=== PATIENT | male | born 1980 | race Caucasian/White ===

== ENCOUNTER 2017-04-16 07:44 | Inpatient (IN) | payer SELFPAY ==
[~2017-04-16] VITALS: Ht 182.9 cm; Wt 106.6 kg
[2017-04-16 07:52] VITALS: BP 122/76
--- NOTE | 2017-04-16 07:57 | NUR ---
Patient ambulated to bed 4. RN evaluating patient at bedside.
--- NOTE | 2017-04-16 08:00 | NUR ---
37M BIB GIRLFRIEND C/O 03/22 "PRESSURE" NON RADIATING CONSTANT RT SIDED HEADACHE X 3 DAYS; PT STATES NO TRAUMA OR INJURY TO SITE AT THIS TIME; PT STATES HE USED METH 4 DAYS AGO; PT ALSO REPORTS OF NAUSEA AND BLURRY VISION; SKIN IS PINK/WARM/DRY; AAOX4 WITH EVEN AND STEADY GAIT; RR ARE EVEN AND UNLABORED; PATIENT POSITIONED FOR COMFORT; HOB ELEVATED; NAD; ER MD MADE AWARE OF PT STATUS.
--- NOTE | 2017-04-16 08:10 | NUR ---
Dr. Dobbs evaluating patient at bedside.
[2017-04-16] MEDS ORDERED: NACL 0.9% 1,000 ML IV ONE ×2 (08:15→10:20)
[2017-04-16] MEDS ORDERED: ONDANSETRON 4 MG/2 ML VIAL IVP ONE (08:15)
[2017-04-16] MEDS ORDERED: MORPHINE SULFATE 2 MG/ML SYR IM ONE (08:15)
[2017-04-16] MEDS ORDERED: PROCHLORPERAZINE 10 MG/2 ML VIAL IVP ONE (08:15)
[2017-04-16] MEDS ORDERED: diphenhydrAMINE 50 MG/ML VIAL IVP ONE (08:15)
[2017-04-16] MEDS ORDERED: KETOROLAC 30 MG/ML VIAL IVP ONE (08:15)
[2017-04-16 09:01] LABS: HEMATOCRIT 49.3 % (36-52); MEAN CORPUSCULAR HEMOGLOBIN 29 pg (27-31); MEAN CORPUSCULAR HGB CONC 33 g/dL (33-37); MEAN CORPUSCULAR VOLUME 89 fL (80-94); PLATELET COUNT (AUTO) 171 K/uL (140-450); RED BLOOD CELL COUNT(AUTO) 5.54 MIL/uL (4.20-6.10); RED CELL DISTRIBUTION WIDTH 12.9 % (11.6-13.7); WHITE BLOOD COUNT (AUTO) 10.2 K/uL (4.8-10.8)
--- NOTE | 2017-04-16 09:05 | NUR ---
PT TO CT VIA MICKIE ACCOMPANIED BY WHOLESALE DIAMOND BROKER
[2017-04-16 09:17] LABS: BARBITURATE, URINE NEG. ng/ml (NEG <=200); BENZODIAZEPINE, URINE NEG. ng/mL (NEG <=200); CANNABINOID, URINE NEG. ng/mL (NEG <=50); COCAINE, URINE NEG. ng/mL (NEG <=300); OPIATE, URINE NEG. ng/mL (NEG <=2000); PHENCYCLIDINE SCREEN,URINE NEG. ng/mL (NEG <=25)
[2017-04-16 09:19] LABS: ANION GAP 14.9 (8-16); CARBON DIOXIDE 27.8 mmol/L (21-32); CREATININE 1.3 mg/dL (0.7-1.3); POTASSIUM 3.7 mmol/L (3.5-5.1)
--- NOTE | 2017-04-16 09:20 | NUR ---
PT STATES CONNOR PAIN DECREASED TO 8/10; ER MD OCAMPO NOTIFIED AND AWARE
--- NOTE | 2017-04-16 09:20 | NUR ---
PT RETURNED FROM CT VIA GURNEY ACCOMPANIED BY HUMAN RESOURCES OFFICE ASSISTANT
[2017-04-16 09:24] LABS: LYMPHOCYTES % (MANUAL) 12 % (20-46); MONOCYTES % (MANUAL) 10 % (5-12)
[2017-04-16] MEDS ORDERED: DEXAMETHASONE 10 MG/ML VIAL IVP ONE (11:10)
[2017-04-16] MEDS ORDERED: cefTRIAXone 2,000 MG in DEXTROSE 5% 100 ML IV ONE (11:10)
[2017-04-16] MEDS ORDERED: VANCOMYCIN 1,000 MG in DEXTROSE 5% 250 ML IV ONE (11:10)
[2017-04-16] MEDS ORDERED: FAMOTIDINE 20 MG/2 ML VIAL IVP ONE (11:10)
--- NOTE | 2017-04-16 11:11 | NUR ---
Dr. Dobbs re-evaluating patient at bedside.
[2017-04-16] MEDS ORDERED: VANCOMYCIN 1,000 MG VIAL ONE ×2 (11:27→20:41)
[2017-04-16] MEDS ORDERED: cefTRIAXone 2,000 MG VIAL ONE (11:34)
--- NOTE | 2017-04-16 11:53 | NUR ---
Patient will be admitted to care of [facility]. Admited [place]. Will go to room 120B. Belongings list completed. Report to Lucrecia.
--- NOTE | 2017-04-16 11:53 | NUR ---
RECEIVED REPORT FROM THE ER NURSE. WILL GET ROOM READY AND AWAIT FOR PT'S ARRIVAL.
[2017-04-16] MEDS ORDERED: HYDROcodone/APAP 7.5/325 MG 1 TAB PO PRN (12:00)
[2017-04-16] MEDS ORDERED: ONDANSETRON 4 MG/2 ML VIAL IVP PRN (12:00)
--- NOTE | 2017-04-16 12:25 | NUR ---
PT ARRIVED ON THE UNIT WITH 2 ER NURSES ON A [place]. PT AMBULATING FROM RNEY IN THE HALLWAY TO THE BED. PT'S GAIT IS STEADY. SKIN IS INTACT. IV ON R HAND 22G SL. VANCO WITH PT. WILL ADMINISTER. PT IS ALERT AND ORIENTED. INTRODUCED MYSELF AND UPDATED THE BOARD. ADMINISTERED IVF, NS AT 50ML/HR ORDERED. ADMINISTERED VANCO. ADMINISTERED BROWN SOCKS. ADMINISTERED TELE MONITOR. MRSA SCREENING DONE. V/S WITHIN NORMAL LIMITS. PLACE ALL PERSONAL BELONGINGS IN BAGS AND IN DRAWER. DR FRAUSTO WITH PT NOW, DOING ASSESSMENT. WILL CONTINUE TO MONITOR PT.
[2017-04-16 12:28] LABS: APPEARANCE,URINE CLEAR (CLEAR); BILIRUBIN,URINE 1+ (NEGATIVE); BLOOD, URINE NEGATIVE (NEGATIVE); COLOR,URINE YELLOW (YELLOW); LEUKOCYTE ESTERASE ,URINE NEGATIVE (NEGATIVE); NITRITE, URINE NEGATIVE (NEGATIVE); UGLUCOSE NEGATIVE (NEGATIVE)
[2017-04-16] MEDS: NACL 0.9% 1,000 ML IV SCH (12:30)
[2017-04-16 12:50] LABS: PROTHROMBIN TIME 11.3 secs (10.8-13.4)
[2017-04-16 13:00] VITALS: BP 130/63
[2017-04-16 13:06] LABS: CHOL/HDL RATIO 3.2 (1-4.5); FREE T4 (FREE THYROXINE) 0.87 ng/dL (0.76-1.46); MAGNESIUM 1.6 mg/dL (1.8-2.4); PHOSPHORUS 2.9 mg/dL (2.5-4.9); THYROID STIMULATING HORMONE 0.94 uIU/mL (0.34-3.74)
[2017-04-16 13:24] LABS: RBC,URINE NONE SEEN /HPF (0-5); WBC,URINE 0-5 (RARE) /HPF (0-5)
--- NOTE | 2017-04-16 14:00 | NUR ---
PT RESTING COMFORTABLY WITH GIRLFRIEND AT HIS SIDE. NO SIGNS OF DISTRESS. WILL CONTINUE TO MONITOR PT.
[2017-04-16] MEDS ORDERED: LORazepam 2 MG/ML VIAL IVP PRN (14:35)
[2017-04-16] MEDS ORDERED: NITROGLYCERIN 0.4 MG TAB SL PRN (14:35)
[2017-04-16] MEDS ORDERED: CALCIUM CARB/VIT-D 500 MG/200 IU 1 TAB PO SCH (14:58)
[2017-04-16] MEDS ORDERED: MAG SULF 2000 MG/WATER PREMIX 50 ML IV SCH (15:00)
[2017-04-16 16:00] VITALS: BP 119/64
--- NOTE | 2017-04-16 16:40 | NUR ---
ADMINISTERED AFTERNOON MEDS. MAG RIDER ADMINISTERED. EDUCATED PT ABOUT LOW MAGNESIUM. PT VERBALIZED UNDERSTANDING. PT IS TOLERATING WELL. RESTING COMFORTABLY. NO SIGNS OF DISTRESS.
--- NOTE | 2017-04-16 19:10 | NUR ---
ENDORSED PT TO THE HAND STAPLER NURSE AT BEDSIDE FOR CONTINUITY OF CARE. PT IS IN STABLE CONDITION. GIRLFRIEND AT BEDSIDE. PT IS RESTING COMFORTABLY. PT IN STABLE CONDITION.
--- NOTE | 2017-04-16 19:11 | NUR ---
RECEIVED REPORT FROM DAY SHIFT RN, PT IS A/FENG4, ON ROOM AIR. INTACT SKIN. RIGHT HAND IV 20G INFUSING NS@50ML/HR. PT IS AMBULATORY WITH STEADY GAIT. SAFETY PRECAUTIONS IN PLACE. UPDATED BOARD. DISCUSSED PLAN OF CARE WITH PT, PT VERBALIZED UNDERSTANDING. VITAL SIGNS WITHIN NORMAL LIMITS. PT FAMILY AT BEDSIDE. PT IN STABLE CONDITION, NO SIGNS OF DISTRESS NOTED. BED IN LOW POSITION, CALL LIGHT WITHIN REACH. WILL CONTINUE TO MONITOR.
[2017-04-16 19:50] VITALS: BP 109/66
[2017-04-16] MEDS ORDERED: ACYCLOVIR 500 MG VIAL IV ONE (20:41)
[2017-04-16] MEDS: DOCUSATE SODIUM 100 MG GELCAP PO SCH (20:48)
[2017-04-16] MEDS: ATORVASTATIN 20 MG TAB PO SCH (20:51)
[2017-04-16] MEDS: METOPROLOL 25 MG TAB PO SCH (20:52)
[2017-04-16] MEDS: LORazepam 1 MG TAB PO SCH (20:52)
[2017-04-16] MEDS: ACETAMINOPHEN 325 MG TAB PO PRN (20:53)
[2017-04-16] MEDS: ACYCLOVIR 500 MG in NACL 0.9% 100 ML IV SCH (20:55)
[2017-04-16] MEDS: VANCOMYCIN 1,000 MG in DEXTROSE 5% 250 ML IV SCH (20:57)
[2017-04-16] MEDS ORDERED: cefTRIAXone 2,000 MG in DEXTROSE 5% 100 ML IV SCH (21:00)
--- NOTE | 2017-04-16 22:35 | NUR ---
PT CALLED SAYING IV WAS LEAKING. WALKED INTO ROOM AND THERE WAS A PUDDLE CLOSE TO IV PUMP ON THE FLOOR. CHECKED IV BAGS FOR LEAKS, DIDN'T FIND A LEAK, IV BAG WAS INFUSING WELL. CHECKED PT IV SITE, IV SITE CLEAN, DRY, INTACT. ASKED PT IF IT WAS POSSIBLE SOMETHING MIGHT HAVE SPILLED ON FLOOR, PT ANSWERED WITH "YES." DRIED PUDDLE AND CHECKED IV AGAIN, NO LEAKS NOTED. PT IN STABLE CONDITION, NO SIGNS OF DISTRESS NOTED. BED IN LOW POSITION, CALL LIGHT WITHIN REACH. WILL CONTINUE TO MONITOR.
[2017-04-17] VITALS: BP 106/65
[2017-04-17 04:00] VITALS: BP 129/73
--- NOTE | 2017-04-17 05:30 | NUR ---
ADMINISTERED SCHEDULED ANTIBIOTICS. PT TOLERATING WELL. PT IN STABLE CONDITION, NO SIGNS OF DISTRESS NOTED. BED IN LOW POSITION, CALL LIGHT WITHIN REACH. WILL CONTINUE TO MONITOR.
[2017-04-17] MEDS ORDERED: VANCOMYCIN 1,000 MG VIAL ONE (05:33)
[2017-04-17] MEDS ORDERED: ACYCLOVIR 500 MG VIAL IV ONE (05:34)
[2017-04-17] MEDS: ACYCLOVIR 500 MG in NACL 0.9% 100 ML IV SCH ×3 (05:37→20:52)
[2017-04-17] MEDS: LORazepam 1 MG TAB PO SCH ×3 (05:37→20:51)
[2017-04-17] MEDS: VANCOMYCIN 1,000 MG in DEXTROSE 5% 250 ML IV SCH (05:37)
--- NOTE | 2017-04-17 07:10 | NUR ---
ENDORSED PT TO DAY SHIFT RN FOR CONTINUITY OF CARE. PT IN STABLE CONDITION WITH NO SIGNS OF DISTRESS.
[2017-04-17] MEDS: NACL 0.9% 1,000 ML IV SCH (07:56)
[2017-04-17 08:00] VITALS: BP 132/79
[2017-04-17] MEDS ORDERED: PANTOPRAZOLE 40 MG INJ VIAL IVP SCH (09:00)
[2017-04-17] MEDS ORDERED: VANCOMYCIN 1,000 MG in DEXTROSE 5% 250 ML IV ONE (09:00)
[2017-04-17] MEDS: CALCIUM CARB/VIT-D 500 MG/200 IU 1 TAB PO SCH (09:04)
[2017-04-17] MEDS: LACTOBACILLUS RHAMNOSUS GG 1 EACH CAP PO SCH (09:05)
[2017-04-17] MEDS: DOCUSATE SODIUM 100 MG GELCAP PO SCH ×2 (09:06→20:52)
[2017-04-17] MEDS: LISINOPRIL 5 MG TAB PO SCH (09:06)
[2017-04-17] MEDS: ASPIRIN 81 MG TAB.CHEW PO SCH (09:07)
[2017-04-17] MEDS: METOPROLOL 25 MG TAB PO SCH ×2 (09:08→20:52)
[2017-04-17] MEDS: cefTRIAXone 2,000 MG in DEXTROSE 5% 100 ML IV SCH (09:08)
[2017-04-17] MEDS ORDERED: VANCOMYCIN PER PHARMACY MC PRN (09:25)
[2017-04-17 12:00] VITALS: BP 124/66
[2017-04-17] MEDS: VANCOMYCIN 1GM/DEXT 5% PREMIX 200 ML IV SCH ×2 (12:33→20:57)
[2017-04-17 13:15] LABS: HEMATOCRIT 42.4 % (36-52); HEMOGLOBIN 14.5 g/dL (12.0-18.0); MEAN CORPUSCULAR HEMOGLOBIN 29 pg (27-31); MEAN CORPUSCULAR HGB CONC 34 g/dL (33-37); MEAN CORPUSCULAR VOLUME 86 fL (80-94); PLATELET COUNT (AUTO) 158 K/uL (140-450); RED BLOOD CELL COUNT(AUTO) 4.94 MIL/uL (4.20-6.10); RED CELL DISTRIBUTION WIDTH 12.7 % (11.6-13.7); WHITE BLOOD COUNT (AUTO) 9.2 K/uL (4.8-10.8)
[2017-04-17 13:19] LABS: ANION GAP 12.2 (8-16); POTASSIUM 3.2 mmol/L (3.5-5.1)
[2017-04-17 13:23] LABS: MAGNESIUM 1.7 mg/dL (1.8-2.4)
[2017-04-17 13:52] LABS: LYMPHOCYTES % (MANUAL) 27 % (20-46); MONOCYTES % (MANUAL) 7 % (5-12)
[2017-04-17 16:00] VITALS: BP 114/48
[2017-04-17] MEDS: ACETAMINOPHEN 325 MG TAB PO PRN (17:04)
[2017-04-17] MEDS ORDERED: CALCIUM CARBONATE 500 MG TAB.CHEW PO SCH ×2 (17:45→21:00)
--- NOTE | 2017-04-17 18:00 | NUR ---
BEDSIDE LUMBAR PUNCTURE BEING DONE. PATIENT TOLERATING WELL.
[2017-04-17] MEDS ORDERED: HYDROmorphone 1 MG/ML AMP IVP SCH (18:40)
[2017-04-17] MEDS ORDERED: LORazepam 2 MG/ML VIAL IM/IVP SCH (18:40)
[2017-04-17] MEDS ORDERED: HYDROmorphone 1 MG/ML AMP ONE (18:48)
[2017-04-17] MEDS ORDERED: LORazepam 2 MG/ML VIAL ONE (18:49)
--- NOTE | 2017-04-17 19:21 | NUR ---
ENDORSED TO SERVICENOW ADMINISTRATOR RN FOR CONTINUITY OF CARE. PATIENT IN STABLE CONDITION.
[2017-04-17 19:32] LABS: CSF GLUCOSE 70 mg/dL (40-70)
[2017-04-17 19:33] LABS: CSF PROTEIN 29.4 mg/dL (15-45)
--- NOTE | 2017-04-17 19:43 | NUR ---
SPOKE WITH PREVIOUS NURSE ABOUT EMAR SHOWING SOME MEDICATIONS IN RED, SHE SAID THEY WERE MEDICATIONS GIVEN DURING PROCEDURE. DOCUMENTED MEDICATIONS "NON-ADMINISTERED GIVEN DURING PROCEDURE."
[2017-04-17 19:52] VITALS: BP 111/49
--- NOTE | 2017-04-17 20:00 | NUR ---
PT'S SIGNIFICANT OTHER WANTS TO STAY THE NIGHT, DR EVERETT MADE AWARE AND SHE SAID IT'S GERALD FOR HER TO STAY, EXPLAINED TO HER THE RISKS DUE TO PT'S CONDITION AND CONTACT PRECAUTION STATUS, PT IS GERALD WITH IT, INSTRUCTED TO WEAR MASK AND GLOVES WHILE INSIDE THE ROOM, VERBALIZED UNDERSTANDING.
[2017-04-17] MEDS: ATORVASTATIN 20 MG TAB PO SCH (20:52)
--- NOTE | 2017-04-17 23:14 | NUR ---
SPOKE TO DR EVERETT ABOUT PT POTASSIUM AND MAGNESIUM LEVELS BEING LOW. SAID SHE WOULD CHECK.
[2017-04-17] MEDS ORDERED: MAG SULF 2000 MG/WATER PREMIX 50 ML IV SCH (23:40)
[2017-04-18] VITALS: BP 104/53
[2017-04-18] MEDS ORDERED: MAGNESIUM OXIDE 400 MG TAB PO SCH (00:25)
[2017-04-18] MEDS ORDERED: KCL 20 MEQ/WATER INJ PREMIX 200 ML IV SCH (00:25)
--- NOTE | 2017-04-18 00:36 | NUR ---
ADMINISTERED ORDERED MEDICATIONS, PT TOLERATING WELL. PT IN STABLE CONDITION, VITAL SIGNS WNL, TEMPERATURE GOING DOWN WITH COOLING MEASURES, NO SIGNS OF DISTRESS NOTED. BED IN LOW POSITION, CALL LIGHT WITHIN REACH. WILL CONTINUE TO MONITOR.
[2017-04-18] MEDS: NACL 0.9% 1,000 ML IV SCH (03:19)
[2017-04-18 04:00] VITALS: BP 111/60
--- NOTE | 2017-04-18 04:08 | NUR ---
PT WAS FEELING ANXIOUS AND REQUESTED MEDICATION FOR ANXIETY. ADMINISTERED PRN ATIVAN. PT TOLERATED WELL. PT IN STABLE CONDITION, NO SIGNS OF DISTRESS NOTED. BED IN LOW POSITION, CALL LIGHT WITHIN REACH. WILL CONTINUE TO MONITOR.
[2017-04-18] MEDS: ACYCLOVIR 500 MG in NACL 0.9% 100 ML IV SCH (04:19)
[2017-04-18] MEDS: VANCOMYCIN 1GM/DEXT 5% PREMIX 200 ML IV SCH (05:03)
[2017-04-18] MEDS: LORazepam 1 MG TAB PO SCH (05:03)
--- NOTE | 2017-04-18 05:40 | NUR ---
GROUP ART SUPERVISOR INFORMED ME PT REFUSED LAB DRAWS. SHE SAID THEY WOULD TRY AGAIN LATER WHEN HE WAKES UP. SPOKE TO PT, PT STATES HE IS TIRED.
--- NOTE | 2017-04-18 05:45 | NUR ---
SPOKE TO DR EVERETT ABOUT PT REQUEST FOR TUMS FOR COMPLAINT OF HEARTBURN. AGREED TO ORDER SOMETHING FOR HEARTBURN.
[2017-04-18] MEDS ORDERED: CALCIUM CARBONATE 500 MG TAB.CHEW PO SCH (05:50)
--- NOTE | 2017-04-18 07:25 | NUR ---
ENDORSED PT TO DAY SHIFT RN FOR CONTINUITY OF CARE. PT IN STABLE CONDITION.
--- NOTE | 2017-04-18 07:26 | NUR ---
RECEIVED REPORT FROM THE CANDLEMAKING LABORER NURSE AT BEDSIDE FOR CONTINUITY OF CARE. PT IS SLEEPING SOUNDLY. K RIDER STILL INFUSING. GIRLFRIEND AT BEDSIDE SLEEPING WELL. WILL BE BACK TO ASSESS PT. PER CANDLEMAKING LABORER NURSE, PT REFUSED MORNING LABS. THEY WILL BE BACK LATER AND TRY AGAIN.
[2017-04-18 08:00] VITALS: BP 99/44
--- NOTE | 2017-04-18 08:05 | NUR ---
V/S WITHIN NORMAL LIMITS. RESPIRATION SHALLOW AND RAPID 28. IV HAS INFILTRATED. SWOLLEN AND RED, COLD TO TOUCH. ID BAND IS TIGHT D/T TO THE SWELLING. REMOVED IV AND BAND. WILL RESTART ANOTHER IV SITE FOR MORNING MEDS. PT IS CONTEMPLATING AMA. EXPLAINED THE RISKS. PT AND GIRLFRIEND STATED THAT HE WILL STAY UNTIL RESULTS COME IN. OK FOR LAB TO COME BACK AND DRAW BLOOD. WILL CALL LAB AND NOTIFY THEM. WILL CONTINUE TO MONITOR PT.
[2017-04-18] MEDS: ASPIRIN 81 MG TAB.CHEW PO SCH (08:59)
[2017-04-18] MEDS: CALCIUM CARB/VIT-D 500 MG/200 IU 1 TAB PO SCH (08:59)
[2017-04-18] MEDS: cefTRIAXone 2,000 MG in DEXTROSE 5% 100 ML IV SCH (09:00)
[2017-04-18] MEDS: METOPROLOL 25 MG TAB PO SCH (09:00)
[2017-04-18] MEDS: LISINOPRIL 5 MG TAB PO SCH (09:00)
[2017-04-18] MEDS: LACTOBACILLUS RHAMNOSUS GG 1 EACH CAP PO SCH (09:00)
[2017-04-18] MEDS: DOCUSATE SODIUM 100 MG GELCAP PO SCH (09:00)
[2017-04-18] MEDS ORDERED: PANTOPRAZOLE 40 MG TABEC PO SCH (09:00)
--- NOTE | 2017-04-18 09:00 | NUR ---
PATIENT HAS BEEN SCREENED AND CATEGORIZED LOW NUTRITION RISK. PATIENT WILL BE SEEN WITHIN 7 DAYS OF ADMISSION. 04/23/[address]
--- NOTE | 2017-04-18 09:04 | NUR ---
LAB IS HERE. PT IS NON-COMPLIANT. PT REFUSED DRAW. NO IV SITE AT THIS MOMENT. REFUSED IV ACCESS. PREPARED MORNING MEDS. REFUSED AT THIS TIME. " I WILL TAKE IT LATER." LEFT MEDS AT BEDSIDE. GIRLFRIEND WILL LET ME KNOW WHEN HE IS MORE AWAKE TO TAKE THEM. HELP BP MEDS D/T LOW BP 99/44. HELD ROCEPHIN. NO IV ACCESS. WILL TALK TO DR WELCH. WILL CONTINUE TO MONITOR PT.
--- NOTE | 2017-04-18 09:20 | NUR ---
GIRLFRIEND CALLED AND LET ME KNOW HE'S AWAKE. PT TOOK THE PREPARED MORNING MEDS. TOLERATED WELL. WILL CONTINUE TO MONITOR PT.
--- NOTE | 2017-04-18 09:25 | NUR ---
SPOKE TO DR. FRAUSTO. EXPLAINED THE SITUATION OF PT'S NON-COMPLIANCE. HE WILL GO AND SPEAK TO PT.
--- NOTE | 2017-04-18 10:13 | NUR ---
DR FRAUSTO SPOKE TO PT. EXPLAINED ALL THE BENEFITS OF TX AND RISKS OF BEING NON-COMPLIANT. PT WANTS TO GO AMA. EXPLAINED ALL THE RISKS OF LEAVING AMA. PT VERBALIZED UNDERSTANDING. SIGNED AMA FORM AND WANT TO LEAVE. REMOVED TELE MONITOR.
--- NOTE | 2017-04-18 10:41 | NUR ---
GIRLFRIEND WALKED OUT. THANKED ME FOR TAKING CARE OF HIM BUT HE IS NOT LISTENING TO HER AND SHE CAN'T DEAL WITH HIM SO SHE IS LEAVING. I ASKED HER ABOUT RIDE. SHE STATES RIDE IS COMING. SHE LEFT.
--- NOTE | 2017-04-18 10:44 | NUR ---
CALLED SECURITY. ENMANUEL WILL BE HERE TO ESCORT PT OUT.
--- NOTE | 2017-04-18 10:50 | NUR ---
2 SECURITY GUARDS ESCORTED PT TO THE LOBBY. PERSONAL BELONGINGS WITH PT. NO SIGNS OF DISTRESS.
[2017-04-19 12:28] LABS: HEPATITIS A ANTIBODY IGM Negative (Negative); HEPATITIS B CORE AB TOTAL Negative (Negative); HEPATITIS B SURFACE AB Non Reactive (.); HEPATITIS B SURFACE ANTIGEN Negative (Negative)
== END 2017-04-18 10:50 | disposition left against medical advice (07) | DRG 894 ==
LOC: MED 07:44 → MTU 11:56
PROVIDERS: ADMIT Student in an Organized Health Care Education/Training Program; ATTEND Student in an Organized Health Care Education/Training Program
DX: F15.10 Other stimulant abuse, uncomplicated (principal); N17.0 Acute kidney failure with tubular necrosis; G92 Toxic encephalopathy; E87.1 Hypo-osmolality and hyponatremia; M94.0 Chondrocostal junction syndrome [Tietze]; E83.51 Hypocalcemia; E83.42 Hypomagnesemia; E66.9 Obesity, unspecified; Z68.31 Body mass index [BMI] 31.0-31.9, adult; Z53.21 Procedure and treatment not carried out due to patient leaving prior to being seen by health care provider; Z71.3 Dietary counseling and surveillance
CPT/HCPCS: 36415; 70450; 71010; 80048; 80202; 80305; 81001; 82040; 82140; 82150; 82948; 83036; 83605; 83690; 83735; 83880; 84100; 84157; 84439; 84443; 84484; 85025; 85610; 85730; 86171; 86702; 86704; 86706; 86708; 86709; 86790; 86803; 87040; 87081; 87086; 87340; 93005; 96361; 96374; 96375; 99285; J0133; J0696; J0780; J1100; J1170; J1200; J1885; J2060; J2270; J2405; J3370; J3475; J3480; J3490; J7030; J7060; Q0092

== ENCOUNTER 2017-04-18 20:16 | Emergency (ER) | payer SELFPAY ==
[~2017-04-18] VITALS: Ht 182.9 cm; Wt 106.6 kg
[2017-04-18 20:25] VITALS: BP 112/74
--- NOTE | 2017-04-18 20:51 | NUR ---
PT TAKEN TO BED 11
--- NOTE | 2017-04-18 20:55 | NUR ---
PATIENT IS A 37 Y/O MALE WHO PRESENTS TO THE ED C/O HEADACHE. PT REPORTS, "I WAS HERE YESTERDAY AND THEY TESTED ME FOR MENINGITIS BUT I LEFT BEFORE I GOT MY PRESCRIPTION." PT REPORTS 4/10 ACHING PAIN ON THE BACK AND HEADACHE THAT DOES NOT RADIATE. PT DENIES SOB, CP, N/V/D. NOTED RIGHT HAND SWELLING AND ERYTHEMA, NO OPEN WOUNDS, CMS INTACT. PT AAOX4, RR EVEN/UNLABORED, LUNG SOUNDS CLEAR BILATERALLY. PT REPOSITIONED FOR COMFORT, BED IN LOWEST POSITION. ER MD DR. ZAIDI NOTIFIED. WILL CONTINUE TO MONITOR.
--- NOTE | 2017-04-18 21:27 | NUR ---
Patient being evaluated by Dr. Abbasi at bedside.
[2017-04-18] MEDS ORDERED: NACL 0.9% 1,000 ML IV ONE (21:44)
[2017-04-18] MEDS ORDERED: DICYCLOMINE HCL LIQUID 20 MG, ALUMINUM HYD/MAG/SIMETHICONE 30 ML, LIDOCAINE VISCOUS 2% ... PO ONE ×3 (21:45)
[2017-04-18] MEDS ORDERED: NACL 0.9% 1,000 ML IV SCH (21:55)
[2017-04-18] MEDS ORDERED: HYDROcodone/APAP 7.5/325 MG 1 TAB PO PRN (21:55)
[2017-04-18] MEDS ORDERED: ACETAMINOPHEN 325 MG TAB PO PRN (21:55)
[2017-04-18] MEDS ORDERED: ONDANSETRON 4 MG/2 ML VIAL IVP PRN (21:55)
[2017-04-18] MEDS ORDERED: MORPHINE SULFATE 4 MG/ML SYR IVP PRN (22:00)
[2017-04-18] MEDS ORDERED: cefTRIAXone 2,000 MG in DEXTROSE 5% 100 ML IV SCH (22:05)
[2017-04-18] MEDS ORDERED: LACTOBACILLUS RHAMNOSUS GG 1 EACH CAP PO SCH (22:05)
[2017-04-18] MEDS ORDERED: VANCOMYCIN 1GM/DEXT 5% PREMIX 200 ML IV SCH (22:05)
[2017-04-18] MEDS ORDERED: VANCOMYCIN PER PHARMACY MC PRN (22:05)
[2017-04-18] MEDS ORDERED: ACYCLOVIR 500 MG in NACL 0.9% 100 ML IV SCH (22:05)
[2017-04-18 22:20] VITALS: BP 121/72
--- NOTE | 2017-04-18 22:20 | NUR ---
Patient does not wish to proceed with medical care recommended by DR. ZAIDI. Patient given information related to possible complications, up to and including , which could occur as a result of leaving hospital at this time. Patient verbalizes understanding of risks involved leaving against medical advice. Patient has signed AMA form.
[2017-04-19] MEDS ORDERED: PANTOPRAZOLE 40 MG TABEC PO SCH (09:00)
[2017-04-19] MEDS ORDERED: DOCUSATE SODIUM 100 MG GELCAP PO SCH (09:00)
== END 2017-04-18 22:20 | disposition left against medical advice (07) ==
LOC: MED 20:16 → UNDOADMOB 21:58 → MTU 21:58 → MED 22:20
DX: R51 Headache (principal)
CPT/HCPCS: 71010; 99283